=== PATIENT | male | born 1950 | race African-American/Black ===

== ENCOUNTER 2018-08-23 09:09 | Inpatient (IN) | payer MEDICARE, MEDICAID ==
[2018-08-23] VITALS (32 sets, daily range): BP systolic 118–171; BP diastolic 64–107
[~2018-08-23] VITALS: Ht 175.3 cm; Wt 89.0 kg
[2018-08-23] MEDS ORDERED: DEXTROSE 50% WATER 50ML SYRINGE IV ONE ×3 (09:19→15:09)
[2018-08-23] MEDS ORDERED: SODIUM BICARBONATE 8.4% 1 MEQ/ML 50ML SYR IV ONE ×3 (09:30→15:09)
[2018-08-23 09:36] LABS: BG BASE EXCESS -11.4 mmol/L (-2.0-2.0); BG CARBOXYHEMOGLOBIN 1.2 % (0.5-1.5); BG DEOXYHEMOGLOBIN 0.1 % (0.0-5.0); BG FRACTION INSPIRED OXYGEN 100; BG HCO3 ACT 16.8 mmol/L (22.0-26.0); BG METHEMOGLOBIN 0.2 % (0.0-1.5); BG OXYGEN SATURATION 99.9 % (92.0-98.5); BG OXYHEMOGLOBIN 98.5 % (94.0-97.0); BG PCO2 46.9 mmHg (35.0-45.0); BG PH 7.172 (7.350-7.450); BG PO2 413.7 mmHg (75.0-100.0); BG SAMPLE SITE RIGHT RADIAL; BG TIDAL VOLUME(mL) 450 mL; BG TOTAL HEMOGLOBIN 12.7 g/dL (12.0-18.0); BG VENT MODE VENT - A/C; BG VENT RATE 14 set
[2018-08-23] MEDS ORDERED: SODIUM CHLORIDE 0.9% 1000ML BAG (SEPSIS BOLUS) IV ONE (09:45)
[2018-08-23] MEDS ORDERED: VECURONIUM BROMIDE 10 MG/VIAL IV ONE ×2 (09:45→15:24)
[2018-08-23] MEDS ORDERED: MIDAZOLAM HCL 50 MG in DEXTROSE 5% WATER 40 ML IV ONE (09:45)
[2018-08-23 09:49] LABS: HEMATOCRIT. 44.6 % (42.0-52.0); HEMOGLOBIN. 13.6 g/dL (14.0-18.0); MEAN CORPUSCULAR HEMOGLOBIN 26.1 pg (28.0-32.0); MEAN PLATELET VOLUME 8.6 fl (7.4-10.4); PLATELET 404 x1000/uL (130-400); RED BLOOD CELL COUNT 5.19 mill/uL (4.7-6.1); RED CELL DISTRIBUTION WIDTH 17.2 % (11.6-14.6)
[2018-08-23 09:54] LABS: CHLORIDE 105 mEq/L (98-107); INR 1.3; PARTIAL THROMBOPLASTIN TIME 29.4 sec (23.4-31.0)
[2018-08-23 09:57] LABS: ETHANOL BLOOD < 10 mg/dL
[2018-08-23] MEDS ORDERED: KCL 20MEQ/100ML PREMIX 100 ML IV ONE (10:15)
[2018-08-23 10:45] LABS: PLATELET ESTIMATE SLIGHTLY INCREASED
[2018-08-23 11:00] LABS: CLARITY URINE CLEAR (CLEAR); COLOR URINE YELLOW (YELLOW); KETONES URINE NEGATIVE (NEGATIVE); LEUKOCYTE ESTERASE URINE NEGATIVE (NEGATIVE); NITRITE URINE NEGATIVE (NEGATIVE); OCCULT BLOOD URINE 2+ (NEGATIVE); PH URINE 7.5 (4.5-8.0); PROTEIN URINE 3+ (NEGATIVE); SPECIFIC GRAVITY URINE 1.011 (1.005-1.030)
[2018-08-23 11:25] LABS: *AMPHETAMINES SCREEN URINE NEGATIVE (NEGATIVE); *BARBITURATES SCREEN URINE NEGATIVE (NEGATIVE); *BENZODIAZEPINES SCREEN URINE NEGATIVE (NEGATIVE); *COCAINE SCREEN URINE NEGATIVE (NEGATIVE)
[2018-08-23 11:26] LABS: CANNABINOID URINE SCREEN NEGATIVE (NEGATIVE); METHADONE URINE SCREEN NEGATIVE (NEGATIVE); OPIATES URINE SCREEN NEGATIVE (NEGATIVE); PHENCYCLIDINE URINE SCREEN NEGATIVE (NEGATIVE)
[2018-08-23] MEDS ORDERED: ASPIRIN 300MG SUPP PR ONE (12:00)
[2018-08-23] MEDS ORDERED: LEVOFLOXACIN 500MG PREMIX 100 ML IV ONE (12:00)
[2018-08-23] MEDS ORDERED: CEFTRIAXONE 1 G PREMIX 50 ML IV ONE (12:00)
[2018-08-23 12:42] LABS: BG BASE EXCESS -0.2 mmol/L (-2.0-2.0); BG CARBOXYHEMOGLOBIN 1.2 % (0.5-1.5); BG DEOXYHEMOGLOBIN 6.2 % (0.0-5.0); BG FRACTION INSPIRED OXYGEN 60; BG HCO3 ACT 25.4 mmol/L (22.0-26.0); BG METHEMOGLOBIN 0.4 % (0.0-1.5); BG OXYGEN SATURATION 93.7 % (92.0-98.5); BG OXYHEMOGLOBIN 92.2 % (94.0-97.0); BG PCO2 45.2 mmHg (35.0-45.0); BG PH 7.367 (7.350-7.450); BG PO2 76.3 mmHg (75.0-100.0); BG SAMPLE SITE LEFT RADIAL; BG TIDAL VOLUME(mL) 550 mL; BG TOTAL HEMOGLOBIN 12.8 g/dL (12.0-18.0); BG VENT MODE VENT - A/C; BG VENT RATE 14 set
[2018-08-23] MEDS ORDERED: ACETAMINOPHEN 650MG SUPP PR PRN (13:15)
[2018-08-23] MEDS ORDERED: MEPERIDINE HCL/PF 25MG/ML CPJ IV PRN (13:15)
[2018-08-23] MEDS ORDERED: FENTANYL CITRATE/PF 500 MCG in SODIUM CHLORIDE 0.9% 40 ML IV PRN (13:15)
[2018-08-23 13:39] LABS: CHLORIDE 110 mEq/L (98-107)
[2018-08-23 14:49] LABS: CHLORIDE 110 mEq/L (98-107)
[2018-08-23 14:55] LABS: AMYLASE 50 IU/L (25-115)
[2018-08-23 14:57] LABS: PHOSPHORUS 3.6 mg/dL (2.5-4.9)
[2018-08-23 14:59] LABS: LDL CHOLESTEROL 61 mg/dL (5-100)
[2018-08-23 15:00] LABS: CREATINE KINASE 229 IU/L (39-308)
[2018-08-23 15:01] LABS: HDL CHOLESTEROL 45 mg/dL (40-59)
[2018-08-23 15:03] LABS: CREATINE KINASE MB FRACTION 5.3 ng/mL (0.5-3.6)
[2018-08-23] MEDS ORDERED: NITROGLYCERIN 0.4MG TABLET SL SL PRN (15:15)
[2018-08-23] MEDS ORDERED: NA PHOS,M-B/NA PHOS,DI-BA ENEMA 118ML PR PRN (15:15)
[2018-08-23] MEDS ORDERED: ACETAMINOPHEN 325MG TABLET PO PRN (15:15)
[2018-08-23] MEDS ORDERED: MAGNESIUM/ALUMINUM HYDROXIDE/SIMETHICONE 30ML UDC PO PRN (15:15)
[2018-08-23] MEDS ORDERED: SODIUM CHLORIDE 0.9% 10ML VIAL ONE (15:24)
[2018-08-23] MEDS: PROPOFOL 10MG/ML 100ML 100 ML IV PRN ×2 (16:43→22:50)
[2018-08-23] MEDS: DEXT 5%/LACTATED RINGERS 1,000 ML IV SCH (16:47)
[2018-08-23] MEDS: PANTOPRAZOLE SODIUM 40 MG/VIAL IV SCH (17:04)
[2018-08-23] MEDS: ENOXAPARIN 40MG/0.4ML SYR SUBCUT SCH (17:06)
[2018-08-23] MEDS ORDERED: KCL 20MEQ/100ML PREMIX 100 ML IV SCH (17:30)
[2018-08-23 17:53] LABS: HEMATOCRIT. 36.5 % (42.0-52.0); HEMOGLOBIN. 11.6 g/dL (14.0-18.0); MEAN CORPUSCULAR HEMOGLOBIN 26.1 pg (28.0-32.0); MEAN CORPUSCULAR VOLUME 82.3 fL (80.0-94.0); MEAN PLATELET VOLUME 8.4 fl (7.4-10.4); PLATELET 336 x1000/uL (130-400); RED BLOOD CELL COUNT 4.44 mill/uL (4.7-6.1); RED CELL DISTRIBUTION WIDTH 16.8 % (11.6-14.6)
[2018-08-23 17:54] LABS: BG BASE EXCESS 0.8 mmol/L (-2.0-2.0); BG CARBOXYHEMOGLOBIN 0.9 % (0.5-1.5); BG DEOXYHEMOGLOBIN 2.4 % (0.0-5.0); BG FRACTION INSPIRED OXYGEN 60; BG HCO3 ACT 25.7 mmol/L (22.0-26.0); BG METHEMOGLOBIN 0.3 % (0.0-1.5); BG OXYGEN SATURATION 97.6 % (92.0-98.5); BG OXYHEMOGLOBIN 96.4 % (94.0-97.0); BG PCO2 42.5 mmHg (35.0-45.0); BG PO2 106.7 mmHg (75.0-100.0); BG SAMPLE SITE RIGHT RADIAL; BG TIDAL VOLUME(mL) 550 mL; BG TOTAL HEMOGLOBIN 12.7 g/dL (12.0-18.0); BG VENT MODE VENT - A/C; BG VENT RATE 14 set
[2018-08-23 17:55] LABS: INR 1.3; PROTHROMBIN TIME 13.2 sec (9.1-11.1)
[2018-08-23] MEDS ORDERED: DEXTROSE 50% WATER 50ML SYRINGE IV PRN (18:00)
[2018-08-23 18:39] LABS: PLATELET ESTIMATE NORMAL
[2018-08-23] MEDS ORDERED: VANCOMYCIN 1500MG in DEXTROSE 5% WATER 250ML IV SCH (20:00)
[2018-08-23] MEDS: IPRATROPIUM/ALBUTEROL 0.5-3(2.5)MG/3ML NEB HHN SCH (20:09)
[2018-08-23] MEDS: PIPERACILLIN/TAZ 3.375G PREMIX 50 ML IV SCH (20:30)
[2018-08-23] MEDS: CARVEDILOL 3.125 MG TABLET PO SCH (21:00)
[2018-08-23] MEDS ORDERED: BLOOD SUGAR DIAGNOSTIC STRIP TEST SCH (21:00)
[2018-08-23] MEDS: INSULIN LISPRO 100 UNITS/ML SUBCUT SCH (21:00)
[2018-08-23 21:35] LABS: CREATINE KINASE MB FRACTION 5.1 ng/mL (0.5-3.6)
[2018-08-23 21:47] LABS: CHLORIDE 112 mEq/L (98-107)
[2018-08-23 21:59] LABS: CREATINE KINASE MB FRACTION 5.7 ng/mL (0.5-3.6)
[2018-08-23] MEDS ORDERED: DOPAMINE 400MG/250ML PREMIX 250 ML IV PRN (22:45)
[2018-08-23] MEDS ORDERED: NOREPINEPHRINE 16 MG in DEXT 5% WATER 234 ML IV PRN (22:45)
[2018-08-23] MEDS ORDERED: MAGNESIUM 2 G PREMIX 50 ML IV NR (23:00)
[2018-08-23 23:54] LABS: BG BASE EXCESS -1.6 mmol/L (-2.0-2.0); BG CARBOXYHEMOGLOBIN 0.8 % (0.5-1.5); BG DEOXYHEMOGLOBIN 1.6 % (0.0-5.0); BG FRACTION INSPIRED OXYGEN 60; BG HCO3 ACT 23.5 mmol/L (22.0-26.0); BG METHEMOGLOBIN 0.1 % (0.0-1.5); BG OXYGEN SATURATION 98.4 % (92.0-98.5); BG OXYHEMOGLOBIN 97.5 % (94.0-97.0); BG PCO2 41.3 mmHg (35.0-45.0); BG PEEP (cmH2O) 0 cmH2O; BG PH 7.373 (7.350-7.450); BG PO2 132.5 mmHg (75.0-100.0); BG SAMPLE SITE LEFT RADIAL; BG TIDAL VOLUME(mL) 500 mL; BG TOTAL HEMOGLOBIN 12.6 g/dL (12.0-18.0); BG VENT RATE 14 set
[2018-08-24] VITALS (101 sets, daily range): BP systolic 92–161; BP diastolic 39–101
[2018-08-24 00:03] LABS: BG VENT MODE VENT - A/C
[2018-08-24] MEDS: BLOOD SUGAR DIAGNOSTIC STRIP TEST SCH ×23 (00:11→23:26)
[2018-08-24] MEDS: PIPERACILLIN/TAZ 3.375G PREMIX 50 ML IV SCH ×5 (00:14→23:26)
[2018-08-24] MEDS: IPRATROPIUM/ALBUTEROL 0.5-3(2.5)MG/3ML NEB HHN SCH ×4 (00:36→20:26)
[2018-08-24] MEDS ORDERED: DEXTROSE 50% WATER 50ML SYRINGE IV PRN ×2 (00:45→20:00)
[2018-08-24] MEDS ORDERED: INSULIN REGULAR (DRIP) 100 UNITS in SODIUM CHLORIDE 0.9% 100 ML IV SCH (01:00)
[2018-08-24 01:20] LABS: CHLORIDE 111 mEq/L (98-107)
[2018-08-24 01:26] LABS: PHOSPHORUS 3.9 mg/dL (2.5-4.9)
[2018-08-24 01:29] LABS: CREATINE KINASE 290 IU/L (39-308)
[2018-08-24 01:31] LABS: CREATINE KINASE MB FRACTION 6.6 ng/mL (0.5-3.6)
[2018-08-24] MEDS: DOBUTAMINE 250MG PREMIX 250 ML IV PRN ×2 (03:12→12:06)
[2018-08-24] MEDS: INSULIN LISPRO 100 UNITS/ML SUBCUT SCH ×5 (07:00→23:28)
[2018-08-24] MEDS: PROPOFOL 10MG/ML 100ML 100 ML IV PRN ×2 (07:04→17:48)
[2018-08-24 07:46] LABS: HEMATOCRIT. 38.8 % (42.0-52.0); HEMOGLOBIN. 11.8 g/dL (14.0-18.0); MEAN CORPUSCULAR HEMOGLOBIN 25.6 pg (28.0-32.0); MEAN CORPUSCULAR VOLUME 84.3 fL (80.0-94.0); MEAN PLATELET VOLUME 8.3 fl (7.4-10.4); PLATELET 285 x1000/uL (130-400); RED BLOOD CELL COUNT 4.61 mill/uL (4.7-6.1); RED CELL DISTRIBUTION WIDTH 16.6 % (11.6-14.6)
[2018-08-24 07:53] LABS: INR 1.4; PROTHROMBIN TIME 13.6 sec (9.1-11.1)
[2018-08-24 07:58] LABS: BG BASE EXCESS -1.6 mmol/L (-2.0-2.0); BG CARBOXYHEMOGLOBIN 0.9 % (0.5-1.5); BG DEOXYHEMOGLOBIN 2.7 % (0.0-5.0); BG FRACTION INSPIRED OXYGEN 60; BG HCO3 ACT 24.4 mmol/L (22.0-26.0); BG METHEMOGLOBIN 0.3 % (0.0-1.5); BG OXYGEN SATURATION 97.3 % (92.0-98.5); BG OXYHEMOGLOBIN 96.1 % (94.0-97.0); BG PCO2 46.2 mmHg (35.0-45.0); BG PO2 109.1 mmHg (75.0-100.0); BG SAMPLE SITE RIGHT RADIAL; BG TIDAL VOLUME(mL) 500 mL; BG TOTAL HEMOGLOBIN 12.2 g/dL (12.0-18.0); BG VENT MODE VENT - A/C; BG VENT RATE 14 set
[2018-08-24 08:02] LABS: CHLORIDE 113 mEq/L (98-107)
[2018-08-24 08:14] LABS: LDL CHOLESTEROL 51 mg/dL (5-100); PHOSPHORUS 3.5 mg/dL (2.5-4.9)
[2018-08-24 08:15] LABS: CREATINE KINASE 532 IU/L (39-308); CREATINE KINASE MB FRACTION 8.7 ng/mL (0.5-3.6)
[2018-08-24 08:16] LABS: HDL CHOLESTEROL 36 mg/dL (40-59)
[2018-08-24] MEDS ORDERED: PANTOPRAZOLE SODIUM 40 MG/VIAL IV SCH (09:00)
[2018-08-24] MEDS: DEXT 5%/LACTATED RINGERS 1,000 ML IV SCH ×2 (09:29→18:19)
[2018-08-24] MEDS: DOCUSATE SODIUM 100MG CAPSULE PO PRN (09:35)
[2018-08-24] MEDS: PANTOPRAZOLE SODIUM 40 MG/VIAL IV SCH (09:36)
[2018-08-24] MEDS: ASPIRIN 325MG TABLET PO SCH (09:36)
[2018-08-24] MEDS: CARVEDILOL 3.125 MG TABLET PO SCH (09:36)
[2018-08-24] MEDS ORDERED: POTASSIUM CHLORIDE 20MEQ/PACKET PO NR ×2 (10:00→23:00)
[2018-08-24 10:10] LABS: PLATELET ESTIMATE NORMAL
[2018-08-24] MEDS: FUROSEMIDE 40MG/4ML VIAL IVP SCH ×2 (10:10→10:13)
[2018-08-24] MEDS: VANCOMYCIN 1250MG in DEXTROSE 5% WATER 250ML IV SCH ×2 (10:13→20:17)
[2018-08-24 13:32] LABS: MEAN CORPUSCULAR VOLUME 82.1 fL (80.0-94.0); MEAN PLATELET VOLUME 8.4 fl (7.4-10.4); PLATELET 281 x1000/uL (130-400); RED BLOOD CELL COUNT 4.63 mill/uL (4.7-6.1); RED CELL DISTRIBUTION WIDTH 16.6 % (11.6-14.6)
[2018-08-24 13:40] LABS: CHLORIDE 111 mEq/L (98-107)
[2018-08-24 13:48] LABS: PHOSPHORUS 3.6 mg/dL (2.5-4.9)
[2018-08-24 14:04] LABS: PLATELET ESTIMATE NORMAL
[2018-08-24] MEDS: DEXTROSE 50% WATER 50ML SYRINGE IV PRN ×3 (14:12→14:19)
[2018-08-24] MEDS: IPRATROPIUM/ALBUTEROL 0.5-3(2.5)MG/3ML NEB HHN PRN (16:15)
[2018-08-24 16:57] LABS: HEMATOCRIT. 36.1 % (42.0-52.0); HEMOGLOBIN. 11.4 g/dL (14.0-18.0); MEAN CORPUSCULAR HEMOGLOBIN 25.6 pg (28.0-32.0); MEAN CORPUSCULAR VOLUME 81.3 fL (80.0-94.0); MEAN PLATELET VOLUME 8.7 fl (7.4-10.4); PLATELET 276 x1000/uL (130-400); RED BLOOD CELL COUNT 4.44 mill/uL (4.7-6.1); RED CELL DISTRIBUTION WIDTH 16.9 % (11.6-14.6)
[2018-08-24 17:04] LABS: INR 1.3; PROTHROMBIN TIME 13.1 sec (9.1-11.1)
[2018-08-24 17:12] LABS: CHLORIDE 112 mEq/L (98-107)
[2018-08-24 17:19] LABS: PHOSPHORUS 3.2 mg/dL (2.5-4.9)
[2018-08-24 17:27] LABS: PLATELET ESTIMATE NORMAL
[2018-08-24] MEDS: ENOXAPARIN 40MG/0.4ML SYR SUBCUT SCH (17:41)
[2018-08-24 17:43] LABS: BG BASE EXCESS -1.2 mmol/L (-2.0-2.0); BG CARBOXYHEMOGLOBIN 0.6 % (0.5-1.5); BG DEOXYHEMOGLOBIN 3.7 % (0.0-5.0); BG FRACTION INSPIRED OXYGEN 40; BG METHEMOGLOBIN 0.3 % (0.0-1.5); BG OXYGEN SATURATION 96.3 % (92.0-98.5); BG OXYHEMOGLOBIN 95.4 % (94.0-97.0); BG PCO2 32.1 mmHg (35.0-45.0); BG PH 7.454 (7.350-7.450); BG PO2 86.6 mmHg (75.0-100.0); BG SAMPLE SITE RIGHT RADIAL; BG TIDAL VOLUME(mL) 500 mL; BG TOTAL HEMOGLOBIN 12.3 g/dL (12.0-18.0); BG VENT MODE VENT - A/C; BG VENT RATE 14 set
[2018-08-24 22:37] LABS: HEMATOCRIT. 34.7 % (42.0-52.0); MEAN CORPUSCULAR HEMOGLOBIN 25.7 pg (28.0-32.0); MEAN CORPUSCULAR VOLUME 81.5 fL (80.0-94.0); MEAN PLATELET VOLUME 8.8 fl (7.4-10.4); PLATELET 268 x1000/uL (130-400); RED BLOOD CELL COUNT 4.26 mill/uL (4.7-6.1); RED CELL DISTRIBUTION WIDTH 16.7 % (11.6-14.6)
[2018-08-24 22:43] LABS: INR 1.3; PROTHROMBIN TIME 13.5 sec (9.1-11.1)
[2018-08-24 22:47] LABS: PHOSPHORUS 3.9 mg/dL (2.5-4.9)
[2018-08-24 23:10] LABS: PLATELET ESTIMATE NORMAL
[2018-08-25] VITALS (93 sets, daily range): BP systolic 88–131; BP diastolic 50–74
[2018-08-25] MEDS: PROPOFOL 10MG/ML 100ML 100 ML IV PRN ×4 (00:30→20:45)
[2018-08-25] MEDS: IPRATROPIUM/ALBUTEROL 0.5-3(2.5)MG/3ML NEB HHN SCH ×4 (01:33→20:13)
[2018-08-25 02:39] LABS: HEMATOCRIT. 35.2 % (42.0-52.0); HEMOGLOBIN. 11.1 g/dL (14.0-18.0); MEAN CORPUSCULAR HEMOGLOBIN 25.9 pg (28.0-32.0); MEAN CORPUSCULAR VOLUME 82.2 fL (80.0-94.0); MEAN PLATELET VOLUME 8.5 fl (7.4-10.4); PLATELET 264 x1000/uL (130-400); RED BLOOD CELL COUNT 4.28 mill/uL (4.7-6.1); RED CELL DISTRIBUTION WIDTH 16.8 % (11.6-14.6)
[2018-08-25 02:50] LABS: PHOSPHORUS 3.8 mg/dL (2.5-4.9)
[2018-08-25 02:59] LABS: INR 1.3; PROTHROMBIN TIME 13.1 sec (9.1-11.1)
[2018-08-25 03:09] LABS: PLATELET ESTIMATE NORMAL
[2018-08-25] MEDS: INSULIN LISPRO 100 UNITS/ML SUBCUT SCH ×6 (03:17→23:12)
[2018-08-25] MEDS: BLOOD SUGAR DIAGNOSTIC STRIP TEST SCH ×6 (03:17→23:12)
[2018-08-25] MEDS: PIPERACILLIN/TAZ 3.375G PREMIX 50 ML IV SCH ×4 (05:06→23:13)
[2018-08-25] MEDS: DEXT 5%/LACTATED RINGERS 1,000 ML IV SCH ×2 (05:06→19:50)
[2018-08-25 08:20] LABS: BG BASE EXCESS 1.5 mmol/L (-2.0-2.0); BG CARBOXYHEMOGLOBIN 0.7 % (0.5-1.5); BG DEOXYHEMOGLOBIN 4.1 % (0.0-5.0); BG FRACTION INSPIRED OXYGEN 40; BG HCO3 ACT 25.6 mmol/L (22.0-26.0); BG METHEMOGLOBIN 0.3 % (0.0-1.5); BG OXYGEN SATURATION 95.9 % (92.0-98.5); BG OXYHEMOGLOBIN 94.9 % (94.0-97.0); BG PCO2 38.7 mmHg (35.0-45.0); BG PH 7.439 (7.350-7.450); BG SAMPLE SITE RIGHT RADIAL; BG TIDAL VOLUME(mL) 500 mL; BG TOTAL HEMOGLOBIN 11.2 g/dL (12.0-18.0); BG VENT MODE VENT - A/C; BG VENT RATE 14 set
[2018-08-25] MEDS: ASPIRIN 325MG TABLET PO SCH (08:37)
[2018-08-25] MEDS: VANCOMYCIN 1250MG in DEXTROSE 5% WATER 250ML IV SCH ×2 (08:37→23:33)
[2018-08-25] MEDS: PANTOPRAZOLE SODIUM 40 MG/VIAL IV SCH (08:37)
[2018-08-25 09:42] LABS: BASOPHILS % 0.4 % (0.0-2.0); HEMATOCRIT. 35.8 % (42.0-52.0); HEMOGLOBIN. 11.2 g/dL (14.0-18.0); LYMPHOCYTES % 8.9 % (20.0-50.0); MEAN CORPUSCULAR HEMOGLOBIN 25.9 pg (28.0-32.0); MEAN CORPUSCULAR VOLUME 82.5 fL (80.0-94.0); MEAN PLATELET VOLUME 8.9 fl (7.4-10.4); MONOCYTES % 9.9 % (2.0-8.0); NEUTROPHILS % 78.8 % (40.0-76.0); PLATELET 281 x1000/uL (130-400); RED BLOOD CELL COUNT 4.34 mill/uL (4.7-6.1); RED CELL DISTRIBUTION WIDTH 16.6 % (11.6-14.6)
[2018-08-25 09:48] LABS: CHLORIDE 110 mEq/L (98-107)
[2018-08-25 09:53] LABS: INR 1.3; PROTHROMBIN TIME 12.7 sec (9.1-11.1)
[2018-08-25 09:54] LABS: PHOSPHORUS 4.1 mg/dL (2.5-4.9)
[2018-08-25 09:57] LABS: CREATINE KINASE 397 IU/L (39-308)
[2018-08-25 10:00] LABS: CREATINE KINASE MB FRACTION 3.8 ng/mL (0.5-3.6)
[2018-08-25] MEDS: ENOXAPARIN 40MG/0.4ML SYR SUBCUT SCH (17:10)
[2018-08-25] MEDS: POTASSIUM CHLORIDE 20MEQ/PACKET PO SCH (17:10)
[2018-08-26] VITALS (87 sets, daily range): BP systolic 91–143; BP diastolic 56–86
[2018-08-26] MEDS: IPRATROPIUM/ALBUTEROL 0.5-3(2.5)MG/3ML NEB HHN SCH ×4 (02:21→20:44)
[2018-08-26] MEDS: BLOOD SUGAR DIAGNOSTIC STRIP TEST SCH ×6 (03:43→23:15)
[2018-08-26] MEDS: INSULIN LISPRO 100 UNITS/ML SUBCUT SCH ×6 (03:44→23:15)
[2018-08-26] MEDS: PROPOFOL 10MG/ML 100ML 100 ML IV PRN (03:45)
[2018-08-26] MEDS: PIPERACILLIN/TAZ 3.375G PREMIX 50 ML IV SCH ×4 (05:08→23:16)
[2018-08-26 05:34] LABS: BASOPHILS % 0.4 % (0.0-2.0); EOSINOPHILS % 2.3 % (0.0-5.0); HEMATOCRIT. 33.9 % (42.0-52.0); HEMOGLOBIN. 10.8 g/dL (14.0-18.0); LYMPHOCYTES % 11.4 % (20.0-50.0); MEAN CORPUSCULAR VOLUME 81.6 fL (80.0-94.0); MEAN PLATELET VOLUME 9.2 fl (7.4-10.4); MONOCYTES % 10.7 % (2.0-8.0); NEUTROPHILS % 75.2 % (40.0-76.0); PLATELET 266 x1000/uL (130-400); RED BLOOD CELL COUNT 4.15 mill/uL (4.7-6.1); RED CELL DISTRIBUTION WIDTH 17.1 % (11.6-14.6)
[2018-08-26 05:49] LABS: CHLORIDE 111 mEq/L (98-107)
[2018-08-26 05:58] LABS: PHOSPHORUS 3.3 mg/dL (2.5-4.9)
[2018-08-26 08:29] LABS: BG BASE EXCESS 3.5 mmol/L (-2.0-2.0); BG CARBOXYHEMOGLOBIN 0.7 % (0.5-1.5); BG DEOXYHEMOGLOBIN 1.7 % (0.0-5.0); BG FRACTION INSPIRED OXYGEN 40; BG HCO3 ACT 27.8 mmol/L (22.0-26.0); BG METHEMOGLOBIN 0.2 % (0.0-1.5); BG OXYGEN SATURATION 98.3 % (92.0-98.5); BG OXYHEMOGLOBIN 97.4 % (94.0-97.0); BG PCO2 41.3 mmHg (35.0-45.0); BG PH 7.446 (7.350-7.450); BG PO2 118.7 mmHg (75.0-100.0); BG SAMPLE SITE RIGHT RADIAL; BG TIDAL VOLUME(mL) 500 mL; BG TOTAL HEMOGLOBIN 10.9 g/dL (12.0-18.0); BG VENT MODE VENT - A/C; BG VENT RATE 14 set
[2018-08-26] MEDS: POTASSIUM CHLORIDE 20MEQ/PACKET PO SCH ×2 (09:07→16:52)
[2018-08-26] MEDS: ASPIRIN 325MG TABLET PO SCH (09:07)
[2018-08-26] MEDS: PANTOPRAZOLE SODIUM 40 MG/VIAL IV SCH (09:07)
[2018-08-26] MEDS: FUROSEMIDE 40MG/4ML VIAL IVP SCH (09:07)
[2018-08-26] MEDS ORDERED: FUROSEMIDE 40MG/4ML VIAL IVP NR (09:45)
[2018-08-26] MEDS: FENTANYL CITRATE/PF 500 MCG in SODIUM CHLORIDE 0.9% 40 ML IV PRN ×2 (12:05→20:58)
[2018-08-26] MEDS ORDERED: KCL 20MEQ/100ML PREMIX 100 ML IV NR (16:00)
[2018-08-26] MEDS: ENOXAPARIN 40MG/0.4ML SYR SUBCUT SCH (16:50)
[2018-08-26] MEDS: VANCOMYCIN 1250MG in DEXTROSE 5% WATER 250ML IV SCH (17:50)
[2018-08-27] VITALS (48 sets, daily range): BP systolic 83–134; BP diastolic 34–85
[2018-08-27] MEDS: IPRATROPIUM/ALBUTEROL 0.5-3(2.5)MG/3ML NEB HHN SCH ×4 (03:07→20:28)
[2018-08-27] MEDS: INSULIN LISPRO 100 UNITS/ML SUBCUT SCH ×6 (03:17→23:30)
[2018-08-27] MEDS: BLOOD SUGAR DIAGNOSTIC STRIP TEST SCH ×6 (03:17→23:30)
[2018-08-27] MEDS: FENTANYL CITRATE/PF 500 MCG in SODIUM CHLORIDE 0.9% 40 ML IV PRN ×2 (04:38→10:57)
[2018-08-27] MEDS: PIPERACILLIN/TAZ 3.375G PREMIX 50 ML IV SCH ×4 (05:20→23:31)
[2018-08-27 07:27] LABS: HEMATOCRIT. 34.5 % (42.0-52.0); HEMOGLOBIN. 10.8 g/dL (14.0-18.0); MEAN CORPUSCULAR HEMOGLOBIN 25.8 pg (28.0-32.0); MEAN CORPUSCULAR VOLUME 82.5 fL (80.0-94.0); MEAN PLATELET VOLUME 8.9 fl (7.4-10.4); PLATELET 271 x1000/uL (130-400); RED BLOOD CELL COUNT 4.18 mill/uL (4.7-6.1); RED CELL DISTRIBUTION WIDTH 17.3 % (11.6-14.6)
[2018-08-27 08:21] LABS: PLATELET ESTIMATE NORMAL
[2018-08-27 11:14] LABS: BG BASE EXCESS 3.6 mmol/L (-2.0-2.0); BG CARBOXYHEMOGLOBIN 0.7 % (0.5-1.5); BG DEOXYHEMOGLOBIN 1.1 % (0.0-5.0); BG FRACTION INSPIRED OXYGEN 60; BG HCO3 ACT 30.4 mmol/L (22.0-26.0); BG METHEMOGLOBIN 0.1 % (0.0-1.5); BG OXYGEN SATURATION 98.9 % (92.0-98.5); BG OXYHEMOGLOBIN 98.1 % (94.0-97.0); BG PCO2 56.6 mmHg (35.0-45.0); BG PH 7.348 (7.350-7.450); BG PO2 169.1 mmHg (75.0-100.0); BG PRESSURE SUPPORT 12; BG SAMPLE SITE RIGHT RADIAL; BG TIDAL VOLUME(mL) 500 mL; BG TOTAL HEMOGLOBIN 11.5 g/dL (12.0-18.0); BG VENT MODE VENT - SIMV; BG VENT RATE 10 set
[2018-08-27] MEDS: PANTOPRAZOLE SODIUM 40 MG/VIAL IV SCH (11:19)
[2018-08-27] MEDS: FUROSEMIDE 40MG/4ML VIAL IVP SCH (11:19)
[2018-08-27] MEDS: ONDANSETRON HCL 4MG/2ML INJ IV PRN (11:20)
[2018-08-27] MEDS: VANCOMYCIN 1250MG in DEXTROSE 5% WATER 250ML IV SCH (11:20)
[2018-08-27] MEDS: ASPIRIN 325MG TABLET PO SCH (11:20)
[2018-08-27] MEDS: POTASSIUM CHLORIDE 20MEQ/PACKET PO SCH ×2 (11:20→17:00)
[2018-08-27] MEDS: METOCLOPRAMIDE HCL 10MG/2ML VIAL IV SCH ×3 (12:02→23:31)
[2018-08-27 13:13] LABS: BG BASE EXCESS 2.8 mmol/L (-2.0-2.0); BG CARBOXYHEMOGLOBIN 0.7 % (0.5-1.5); BG DEOXYHEMOGLOBIN 1.6 % (0.0-5.0); BG FRACTION INSPIRED OXYGEN 40; BG HCO3 ACT 29.5 mmol/L (22.0-26.0); BG METHEMOGLOBIN 0.4 % (0.0-1.5); BG OXYGEN SATURATION 98.4 % (92.0-98.5); BG OXYHEMOGLOBIN 97.3 % (94.0-97.0); BG PCO2 55.1 mmHg (35.0-45.0); BG PH 7.346 (7.350-7.450); BG PO2 135.2 mmHg (75.0-100.0); BG PRESSURE SUPPORT 8; BG SAMPLE SITE RIGHT RADIAL; BG TOTAL HEMOGLOBIN 11.4 g/dL (12.0-18.0); BG VENT MODE VENT - CPAP
[2018-08-27] MEDS: ENOXAPARIN 40MG/0.4ML SYR SUBCUT SCH (17:40)
[2018-08-28] VITALS (44 sets, daily range): BP systolic 110–196; BP diastolic 49–103
[2018-08-28] MEDS: IPRATROPIUM/ALBUTEROL 0.5-3(2.5)MG/3ML NEB HHN SCH ×4 (01:16→20:11)
[2018-08-28] MEDS: BLOOD SUGAR DIAGNOSTIC STRIP TEST SCH ×6 (04:00→23:06)
[2018-08-28] MEDS: INSULIN LISPRO 100 UNITS/ML SUBCUT SCH ×6 (04:00→23:05)
[2018-08-28] MEDS: METOCLOPRAMIDE HCL 10MG/2ML VIAL IV SCH ×4 (05:04→23:11)
[2018-08-28] MEDS: PIPERACILLIN/TAZ 3.375G PREMIX 50 ML IV SCH ×4 (05:04→23:11)
[2018-08-28 05:41] LABS: HEMATOCRIT. 33.3 % (42.0-52.0); HEMOGLOBIN. 10.3 g/dL (14.0-18.0); MEAN CORPUSCULAR VOLUME 83.7 fL (80.0-94.0); MEAN PLATELET VOLUME 9.2 fl (7.4-10.4); PLATELET 243 x1000/uL (130-400); RED BLOOD CELL COUNT 3.98 mill/uL (4.7-6.1); RED CELL DISTRIBUTION WIDTH 17.2 % (11.6-14.6)
[2018-08-28] MEDS: VANCOMYCIN 1250MG in DEXTROSE 5% WATER 250ML IV SCH (06:00)
[2018-08-28 06:33] LABS: VANCOMYCIN TROUGH 25.1 ug/mL (5.0-10.0)
[2018-08-28] MEDS ORDERED: LORAZEPAM 2MG/ML CPJ IV PRN (08:45)
[2018-08-28] MEDS: FUROSEMIDE 40MG/4ML VIAL IVP SCH (08:59)
[2018-08-28] MEDS: PANTOPRAZOLE SODIUM 40 MG/VIAL IV SCH (09:00)
[2018-08-28] MEDS: POTASSIUM CHLORIDE 20MEQ/PACKET PO SCH ×2 (09:00→17:13)
[2018-08-28] MEDS: ASPIRIN 325MG TABLET PO SCH (09:00)
[2018-08-28 10:13] LABS: PLATELET ESTIMATE NORMAL
[2018-08-28 11:28] LABS: BG BASE EXCESS 3.7 mmol/L (-2.0-2.0); BG CARBOXYHEMOGLOBIN 0.9 % (0.5-1.5); BG DEOXYHEMOGLOBIN 4.8 % (0.0-5.0); BG HCO3 ACT 29.6 mmol/L (22.0-26.0); BG METHEMOGLOBIN 0.1 % (0.0-1.5); BG OXYGEN SATURATION 95.2 % (92.0-98.5); BG OXYHEMOGLOBIN 94.2 % (94.0-97.0); BG PCO2 50.9 mmHg (35.0-45.0); BG PH 7.382 (7.350-7.450); BG PO2 81.9 mmHg (75.0-100.0); BG SAMPLE SITE RIGHT RADIAL; BG TOTAL HEMOGLOBIN 11.3 g/dL (12.0-18.0); BG VENT MODE MASK - AEROSOL
[2018-08-28] MEDS: ENOXAPARIN 40MG/0.4ML SYR SUBCUT SCH (17:13)
[2018-08-28] MEDS: CLONIDINE 0.1MG TABLET PO PRN (21:23)
[2018-08-29] VITALS (24 sets, daily range): BP systolic 124–164; BP diastolic 62–91
[2018-08-29] MEDS: IPRATROPIUM/ALBUTEROL 0.5-3(2.5)MG/3ML NEB HHN SCH ×4 (01:51→20:34)
[2018-08-29] MEDS: INSULIN LISPRO 100 UNITS/ML SUBCUT SCH ×5 (04:00→21:17)
[2018-08-29] MEDS: BLOOD SUGAR DIAGNOSTIC STRIP TEST SCH ×5 (04:00→20:00)
[2018-08-29] MEDS: METOCLOPRAMIDE HCL 10MG/2ML VIAL IV SCH ×3 (06:10→17:17)
[2018-08-29] MEDS: PIPERACILLIN/TAZ 3.375G PREMIX 50 ML IV SCH ×3 (06:10→17:17)
[2018-08-29] MEDS: FUROSEMIDE 40MG/4ML VIAL IVP SCH (09:02)
[2018-08-29] MEDS: PANTOPRAZOLE SODIUM 40 MG/VIAL IV SCH (09:02)
[2018-08-29] MEDS: POTASSIUM CHLORIDE 20MEQ/PACKET PO SCH ×2 (09:02→17:17)
[2018-08-29] MEDS: ASPIRIN 325MG TABLET PO SCH (09:02)
[2018-08-29] MEDS: ENOXAPARIN 40MG/0.4ML SYR SUBCUT SCH (17:17)
[2018-08-30] VITALS (15 sets, daily range): BP systolic 101–173; BP diastolic 54–98
[2018-08-30] MEDS: PIPERACILLIN/TAZ 3.375G PREMIX 50 ML IV SCH ×4 (00:05→17:21)
[2018-08-30] MEDS: METOCLOPRAMIDE HCL 10MG/2ML VIAL IV SCH ×4 (00:05→17:21)
[2018-08-30] MEDS: BLOOD SUGAR DIAGNOSTIC STRIP TEST SCH ×6 (00:05→20:40)
[2018-08-30] MEDS: IPRATROPIUM/ALBUTEROL 0.5-3(2.5)MG/3ML NEB HHN SCH ×5 (01:39→20:28)
[2018-08-30] MEDS: IPRATROPIUM/ALBUTEROL 0.5-3(2.5)MG/3ML NEB HHN PRN (02:18)
[2018-08-30] MEDS: INSULIN LISPRO 100 UNITS/ML SUBCUT SCH ×6 (06:12→21:01)
[2018-08-30] MEDS: PANTOPRAZOLE SODIUM 40 MG/VIAL IV SCH (08:52)
[2018-08-30] MEDS: ASPIRIN 325MG TABLET PO SCH (08:52)
[2018-08-30] MEDS: DOCUSATE SODIUM 100MG CAPSULE PO PRN (08:52)
[2018-08-30] MEDS: FUROSEMIDE 40MG/4ML VIAL IVP SCH (08:52)
[2018-08-30] MEDS: POTASSIUM CHLORIDE 20MEQ/PACKET PO SCH ×2 (08:53→17:10)
[2018-08-30] MEDS: CLONIDINE 0.1MG TABLET PO PRN ×2 (09:09→14:17)
[2018-08-30 09:15] LABS: BASOPHILS % 0.9 % (0.0-2.0); EOSINOPHILS % 2.8 % (0.0-5.0); HEMATOCRIT. 35.2 % (42.0-52.0); MEAN CORPUSCULAR HEMOGLOBIN 25.8 pg (28.0-32.0); MEAN CORPUSCULAR VOLUME 82.9 fL (80.0-94.0); MEAN PLATELET VOLUME 9.4 fl (7.4-10.4); MONOCYTES % 12.6 % (2.0-8.0); NEUTROPHILS % 75.7 % (40.0-76.0); PLATELET 311 x1000/uL (130-400); RED BLOOD CELL COUNT 4.24 mill/uL (4.7-6.1); RED CELL DISTRIBUTION WIDTH 17.4 % (11.6-14.6)
[2018-08-30 11:09] LABS: CHLORIDE 112 mEq/L (98-107)
[2018-08-30] MEDS: ENOXAPARIN 60MG/0.6ML SYR SUBCUT SCH (17:11)
[2018-08-30] MEDS: DILTIAZEM HCL 30MG TABLET PO SCH (21:10)
[2018-08-31] VITALS (13 sets, daily range): BP systolic 108–164; BP diastolic 51–94
[2018-08-31] MEDS: METOCLOPRAMIDE HCL 10MG/2ML VIAL IV SCH ×5 (01:08→23:33)
[2018-08-31] MEDS: IPRATROPIUM/ALBUTEROL 0.5-3(2.5)MG/3ML NEB HHN SCH ×4 (01:24→21:32)
[2018-08-31] MEDS: INSULIN LISPRO 100 UNITS/ML SUBCUT SCH ×7 (04:00→23:34)
[2018-08-31] MEDS: BLOOD SUGAR DIAGNOSTIC STRIP TEST SCH ×7 (04:38→23:33)
[2018-08-31] MEDS: DILTIAZEM HCL 30MG TABLET PO SCH (05:59)
[2018-08-31] MEDS: ENOXAPARIN 60MG/0.6ML SYR SUBCUT SCH ×2 (05:59→17:11)
[2018-08-31 07:22] LABS: BASOPHILS % 0.8 % (0.0-2.0); EOSINOPHILS % 2.8 % (0.0-5.0); HEMATOCRIT. 34.3 % (42.0-52.0); HEMOGLOBIN. 10.8 g/dL (14.0-18.0); LYMPHOCYTES % 11.5 % (20.0-50.0); MEAN CORPUSCULAR HEMOGLOBIN 25.7 pg (28.0-32.0); MEAN CORPUSCULAR VOLUME 81.7 fL (80.0-94.0); MEAN PLATELET VOLUME 9.6 fl (7.4-10.4); MONOCYTES % 12.5 % (2.0-8.0); NEUTROPHILS % 72.4 % (40.0-76.0); PLATELET 321 x1000/uL (130-400); RED CELL DISTRIBUTION WIDTH 17.4 % (11.6-14.6)
[2018-08-31] MEDS: ASPIRIN 325MG TABLET PO SCH (09:33)
[2018-08-31] MEDS: POTASSIUM CHLORIDE 20MEQ/PACKET PO SCH ×2 (09:33→17:10)
[2018-08-31] MEDS: FUROSEMIDE 40MG/4ML VIAL IVP SCH (09:33)
[2018-08-31] MEDS: PANTOPRAZOLE SODIUM 40 MG/VIAL IV SCH (09:33)
[2018-08-31 11:04] LABS: CHLORIDE 112 mEq/L (98-107)
[2018-08-31] MEDS: DILTIAZEM HCL 60MG TABLET PO SCH ×2 (14:44→23:33)
[2018-09-01] VITALS (11 sets, daily range): BP systolic 125–154; BP diastolic 51–107
[2018-09-01] MEDS: IPRATROPIUM/ALBUTEROL 0.5-3(2.5)MG/3ML NEB HHN SCH ×4 (01:02→21:06)
[2018-09-01] MEDS: BLOOD SUGAR DIAGNOSTIC STRIP TEST SCH ×5 (04:13→20:37)
[2018-09-01] MEDS: INSULIN LISPRO 100 UNITS/ML SUBCUT SCH ×5 (04:14→20:39)
[2018-09-01] MEDS: METOCLOPRAMIDE HCL 10MG/2ML VIAL IV SCH ×3 (05:58→17:41)
[2018-09-01] MEDS: ENOXAPARIN 60MG/0.6ML SYR SUBCUT SCH ×2 (05:58→17:42)
[2018-09-01] MEDS: DILTIAZEM HCL 60MG TABLET PO SCH ×2 (05:58→15:05)
[2018-09-01 08:00] LABS: BASOPHILS % 0.9 % (0.0-2.0); EOSINOPHILS % 1.8 % (0.0-5.0); HEMATOCRIT. 38.3 % (42.0-52.0); HEMOGLOBIN. 11.7 g/dL (14.0-18.0); LYMPHOCYTES % 9.4 % (20.0-50.0); MEAN CORPUSCULAR HEMOGLOBIN 25.7 pg (28.0-32.0); MEAN CORPUSCULAR VOLUME 84.1 fL (80.0-94.0); MEAN PLATELET VOLUME 9.8 fl (7.4-10.4); MONOCYTES % 11.4 % (2.0-8.0); NEUTROPHILS % 76.5 % (40.0-76.0); PLATELET 358 x1000/uL (130-400); RED BLOOD CELL COUNT 4.55 mill/uL (4.7-6.1); RED CELL DISTRIBUTION WIDTH 17.8 % (11.6-14.6)
[2018-09-01] MEDS: POTASSIUM CHLORIDE 20MEQ/PACKET PO SCH ×2 (09:12→17:41)
[2018-09-01] MEDS: ASPIRIN 325MG TABLET PO SCH (09:12)
[2018-09-01] MEDS: PANTOPRAZOLE SODIUM 40 MG/VIAL IV SCH (09:12)
[2018-09-01] MEDS: FUROSEMIDE 40MG/4ML VIAL IVP SCH (09:12)
[2018-09-01] MEDS: DILTIAZEM HCL 90MG TABLET PO SCH (21:23)
[2018-09-02] VITALS (9 sets, daily range): BP systolic 128–166; BP diastolic 76–102
[2018-09-02] MEDS: IPRATROPIUM/ALBUTEROL 0.5-3(2.5)MG/3ML NEB HHN SCH ×2 (01:08→21:05)
[2018-09-02] MEDS: METOCLOPRAMIDE HCL 10MG/2ML VIAL IV SCH ×4 (01:21→17:31)
[2018-09-02] MEDS: BLOOD SUGAR DIAGNOSTIC STRIP TEST SCH ×6 (04:37→20:27)
[2018-09-02] MEDS: INSULIN LISPRO 100 UNITS/ML SUBCUT SCH ×6 (04:41→21:02)
[2018-09-02] MEDS: ENOXAPARIN 60MG/0.6ML SYR SUBCUT SCH ×2 (05:21→17:31)
[2018-09-02] MEDS: DILTIAZEM HCL 90MG TABLET PO SCH ×3 (05:24→17:33)
[2018-09-02 07:00] LABS: BG BASE EXCESS 3.4 mmol/L (-2.0-2.0); BG CARBOXYHEMOGLOBIN 1.1 % (0.5-1.5); BG DEOXYHEMOGLOBIN 6.4 % (0.0-5.0); BG FRACTION INSPIRED OXYGEN 32; BG METHEMOGLOBIN 0.3 % (0.0-1.5); BG OXYGEN SATURATION 93.5 % (92.0-98.5); BG OXYHEMOGLOBIN 92.2 % (94.0-97.0); BG PCO2 37.4 mmHg (35.0-45.0); BG PH 7.476 (7.350-7.450); BG PO2 72.5 mmHg (75.0-100.0); BG SAMPLE SITE RIGHT RADIAL; BG TOTAL HEMOGLOBIN 12.3 g/dL (12.0-18.0); BG VENT MODE NASAL CANNULA
[2018-09-02 07:04] LABS: BASOPHILS % 0.6 % (0.0-2.0); EOSINOPHILS % 2.2 % (0.0-5.0); HEMATOCRIT. 35.3 % (42.0-52.0); HEMOGLOBIN. 11.1 g/dL (14.0-18.0); LYMPHOCYTES % 8.3 % (20.0-50.0); MEAN CORPUSCULAR HEMOGLOBIN 25.8 pg (28.0-32.0); MEAN CORPUSCULAR VOLUME 82.2 fL (80.0-94.0); MEAN PLATELET VOLUME 9.7 fl (7.4-10.4); NEUTROPHILS % 79.9 % (40.0-76.0); PLATELET 334 x1000/uL (130-400); RED BLOOD CELL COUNT 4.29 mill/uL (4.7-6.1); RED CELL DISTRIBUTION WIDTH 17.8 % (11.6-14.6)
[2018-09-02] MEDS: PANTOPRAZOLE SODIUM 40 MG/VIAL IV SCH (09:03)
[2018-09-02] MEDS: FUROSEMIDE 40MG/4ML VIAL IVP SCH (09:03)
[2018-09-02] MEDS: ASPIRIN 325MG TABLET PO SCH (09:03)
[2018-09-02] MEDS: POTASSIUM CHLORIDE 20MEQ/PACKET PO SCH ×2 (09:03→17:31)
[2018-09-03] MEDS: METOCLOPRAMIDE HCL 10MG/2ML VIAL IV SCH ×4 (01:01→18:28)
[2018-09-03] MEDS: DILTIAZEM HCL 90MG TABLET PO SCH ×4 (01:56→18:29)
[2018-09-03] MEDS: IPRATROPIUM/ALBUTEROL 0.5-3(2.5)MG/3ML NEB HHN SCH ×4 (04:45→20:53)
[2018-09-03] MEDS: ENOXAPARIN 60MG/0.6ML SYR SUBCUT SCH ×2 (06:43→18:29)
[2018-09-03 07:46] LABS: CHLORIDE 110 mEq/L (98-107)
[2018-09-03 07:49] LABS: BASOPHILS % 0.7 % (0.0-2.0); EOSINOPHILS % 3.8 % (0.0-5.0); HEMATOCRIT. 35.9 % (42.0-52.0); HEMOGLOBIN. 11.3 g/dL (14.0-18.0); LYMPHOCYTES % 8.6 % (20.0-50.0); MEAN CORPUSCULAR HEMOGLOBIN 25.9 pg (28.0-32.0); MEAN CORPUSCULAR VOLUME 82.4 fL (80.0-94.0); MEAN PLATELET VOLUME 10.3 fl (7.4-10.4); MONOCYTES % 7.9 % (2.0-8.0); PLATELET 363 x1000/uL (130-400); RED BLOOD CELL COUNT 4.36 mill/uL (4.7-6.1); RED CELL DISTRIBUTION WIDTH 17.8 % (11.6-14.6)
[2018-09-03 08:00] VITALS: BP 158/99
[2018-09-03] MEDS: ASPIRIN 325MG TABLET PO SCH (08:18)
[2018-09-03] MEDS: FUROSEMIDE 40MG/4ML VIAL IVP SCH (08:18)
[2018-09-03] MEDS: BLOOD SUGAR DIAGNOSTIC STRIP TEST SCH ×4 (08:18→21:00)
[2018-09-03] MEDS: PANTOPRAZOLE SODIUM 40 MG/VIAL IV SCH (08:18)
[2018-09-03] MEDS: POTASSIUM CHLORIDE 20MEQ/PACKET PO SCH ×2 (08:18→18:28)
[2018-09-03] MEDS: INSULIN LISPRO 100 UNITS/ML SUBCUT SCH ×4 (08:19→21:00)
[2018-09-03 09:22] VITALS: BP 145/87
[2018-09-03 12:00] VITALS: BP 106/78
[2018-09-03 16:00] VITALS: BP 133/82
[2018-09-03 20:00] VITALS: BP 136/80
[2018-09-04] VITALS (8 sets, daily range): BP systolic 98–141; BP diastolic 49–83
[2018-09-04] MEDS: DOCUSATE SODIUM 100MG CAPSULE PO PRN (00:02)
[2018-09-04] MEDS: METOCLOPRAMIDE HCL 10MG/2ML VIAL IV SCH ×5 (00:02→23:59)
[2018-09-04] MEDS: DILTIAZEM HCL 90MG TABLET PO SCH ×5 (00:02→23:59)
[2018-09-04] MEDS: ONDANSETRON HCL 4MG/2ML INJ IV PRN (00:02)
[2018-09-04] MEDS: IPRATROPIUM/ALBUTEROL 0.5-3(2.5)MG/3ML NEB HHN SCH ×5 (01:51→21:15)
[2018-09-04] MEDS ORDERED: ACETAMINOPHEN 325MG TABLET PO PRN (04:45)
[2018-09-04] MEDS: ENOXAPARIN 60MG/0.6ML SYR SUBCUT SCH ×2 (05:55→17:27)
[2018-09-04] MEDS ORDERED: FUROSEMIDE 40MG/4ML VIAL IVP SCH (09:00)
[2018-09-04] MEDS ORDERED: ENOXAPARIN 40MG/0.4ML SYR SUBCUT SCH (09:00)
[2018-09-04] MEDS: POTASSIUM CHLORIDE 20MEQ/PACKET PO SCH ×2 (09:50→17:23)
[2018-09-04] MEDS: ASPIRIN 325MG TABLET PO SCH (09:50)
[2018-09-04] MEDS: PANTOPRAZOLE SODIUM 40 MG/VIAL IV SCH (09:50)
[2018-09-04] MEDS: BLOOD SUGAR DIAGNOSTIC STRIP TEST SCH ×3 (12:30→21:17)
[2018-09-04] MEDS: INSULIN LISPRO 100 UNITS/ML SUBCUT SCH ×3 (14:10→21:22)
[2018-09-05] VITALS (9 sets, daily range): BP systolic 118–141; BP diastolic 48–92
[2018-09-05] MEDS: METOCLOPRAMIDE HCL 10MG/2ML VIAL IV SCH ×3 (06:27→18:06)
[2018-09-05] MEDS: ENOXAPARIN 60MG/0.6ML SYR SUBCUT SCH ×2 (06:27→18:06)
[2018-09-05] MEDS: DILTIAZEM HCL 90MG TABLET PO SCH ×3 (06:27→18:07)
[2018-09-05] MEDS: BLOOD SUGAR DIAGNOSTIC STRIP TEST SCH ×3 (07:48→17:03)
[2018-09-05] MEDS: INSULIN LISPRO 100 UNITS/ML SUBCUT SCH ×3 (08:15→18:07)
[2018-09-05] MEDS: POTASSIUM CHLORIDE 20MEQ/PACKET PO SCH ×2 (09:17→17:00)
[2018-09-05] MEDS: ASPIRIN 325MG TABLET PO SCH (09:17)
[2018-09-05] MEDS: PANTOPRAZOLE SODIUM 40 MG/VIAL IV SCH (09:17)
[2018-09-05] MEDS: IPRATROPIUM/ALBUTEROL 0.5-3(2.5)MG/3ML NEB HHN SCH ×4 (10:38→20:01)
== END 2018-09-05 23:48 | DRG 870 ==
LOC: ER 09:13 → EDBEDREQ 10:24 → MICUSO 11:20 → ENRESERV 14:13 → SUPCPDRO 15:10 → 5EST 08-29 08:49
PROVIDERS: ADMIT Internal Medicine; ATTEND Internal Medicine
PROC: 5A1955Z Respiratory Ventilation, Greater than 96 Consecutive Hours (ICD-10-PCS; principal; 2018-08-23)
PROC: 5A12012 Performance of Cardiac Output, Single, Manual (ICD-10-PCS; 2018-08-23)
PROC: 05HY33Z Insertion of Infusion Device into Upper Vein, Percutaneous Approach (ICD-10-PCS; 2018-08-23)
PROC: B54MZZZ Ultrasonography of Right Upper Extremity Veins (ICD-10-PCS; 2018-08-23)
PROC: 0BH17EZ Insertion of Endotracheal Airway into Trachea, Via Natural or Artificial Opening (ICD-10-PCS; 2018-08-23)
DX: A41.9 Sepsis, unspecified organism (principal); J96.01 Acute respiratory failure with hypoxia; I46.2 Cardiac arrest due to underlying cardiac condition; I50.43 Acute on chronic combined systolic (congestive) and diastolic (congestive) heart failure; I49.01 Ventricular fibrillation; R65.21 Severe sepsis with septic shock; N39.0 Urinary tract infection, site not specified; I42.9 Cardiomyopathy, unspecified; E44.0 Moderate protein-calorie malnutrition; G93.1 Anoxic brain damage, not elsewhere classified; E87.2 Acidosis; G93.40 Encephalopathy, unspecified; E80.6 Other disorders of bilirubin metabolism; I11.0 Hypertensive heart disease with heart failure; E11.649 Type 2 diabetes mellitus with hypoglycemia without coma; E87.6 Hypokalemia; E11.65 Type 2 diabetes mellitus with hyperglycemia; I48.0 Paroxysmal atrial fibrillation; I87.2 Venous insufficiency (chronic) (peripheral); Z78.1 Physical restraint status; Z79.4 Long term (current) use of insulin; Z86.73 Personal history of transient ischemic attack (TIA), and cerebral infarction without residual deficits; Z91.14 Patient's other noncompliance with medication regimen; Z68.29 Body mass index [BMI] 29.0-29.9, adult
CPT/HCPCS: 36415; 36556; 36569; 36600; 71045; 71250; 76937; 78580; 80048; 80061; 80202; 80305; 82150; 82330; 82375; 82533; 82550; 82553; 82805; 82962; 83036; 83605; 83735; 83880; 84100; 84145; 84443; 84478; 84484; 85379; 87070; 92610; 93005; 93306; 93970; 94002; 94003; 94640; 94667; 96365; 96375; 97116; 97163; 97166; 97530; 97535; 99291; A6261; C1725; C9113; G0482; J0696; J1250; J1650; J1815; J1940; J1956; J2060; J2250; J2405; J2543; J2704; J2765; J3010; J3370; J3475; J3480; J3490; J7030; J7050; J7060; J7620; A4315

== ENCOUNTER 2018-11-08 10:23 | Inpatient (IN) | payer MEDICARE, MEDICAID ==
[~2018-11-08] VITALS: Ht 188 cm; Wt 94.3 kg
[2018-11-08 11:15] LABS: BASOPHILS % 0.8 % (0.0-2.0); EOSINOPHILS % 0.7 % (0.0-5.0); HEMATOCRIT. 47.7 % (42.0-52.0); HEMOGLOBIN. 15.3 g/dL (14.0-18.0); LYMPHOCYTES % 12.4 % (20.0-50.0); MEAN CORPUSCULAR HEMOGLOBIN 27.7 pg (28.0-32.0); MEAN CORPUSCULAR VOLUME 86.2 fL (80.0-94.0); MEAN PLATELET VOLUME 9.6 fl (7.4-10.4); MONOCYTES % 6.7 % (2.0-8.0); NEUTROPHILS % 79.4 % (40.0-76.0); PLATELET 219 x1000/uL (130-400); RED BLOOD CELL COUNT 5.53 mill/uL (4.7-6.1); RED CELL DISTRIBUTION WIDTH 25.4 % (11.6-14.6)
[2018-11-08 11:20] LABS: CHLORIDE 109 mEq/L (98-107)
[2018-11-08] MEDS ORDERED: ENALAPRIL 2.5MG/2ML VIAL 2ML IV ONE (12:00)
[2018-11-08] MEDS ORDERED: FUROSEMIDE 40MG/4ML VIAL IVP ONE (12:00)
[2018-11-08 12:09] LABS: PLATELET ESTIMATE NORMAL
[2018-11-08] MEDS ORDERED: ACETAMINOPHEN 325MG TABLET PO PRN (12:30)
[2018-11-08] MEDS ORDERED: ONDANSETRON HCL 4MG/2ML INJ IV PRN (12:30)
[2018-11-08] MEDS ORDERED: CLONIDINE 0.1MG TABLET PO PRN (12:30)
[2018-11-08] MEDS ORDERED: IPRATROPIUM/ALBUTEROL 0.5-3(2.5)MG/3ML NEB INH PRN (12:30)
[2018-11-08] MEDS ORDERED: TRAMADOL 50MG TABLET PO PRN (12:30)
[2018-11-08] MEDS ORDERED: GUAIFENESIN 200MG/10ML SUGAR FREE UDC PO PRN (12:30)
[2018-11-08] MEDS ORDERED: MORPHINE SULFATE 4 MG/ML CPJ (NOT FOR IM USE) IV PRN (12:30)
[2018-11-08] MEDS ORDERED: NA PHOS,M-B/NA PHOS,DI-BA ENEMA 118ML PR PRN (12:30)
[2018-11-08] MEDS ORDERED: ZOLPIDEM TARTRATE 5MG TABLET PO PRN (12:30)
[2018-11-08] MEDS ORDERED: MAGNESIUM/ALUMINUM HYDROXIDE/SIMETHICONE 30ML UDC PO PRN (12:30)
[2018-11-08] MEDS ORDERED: NITROGLYCERIN 0.4MG TABLET SL SL PRN ×2 (12:30)
[2018-11-08] MEDS ORDERED: DEXTROSE 50% WATER 50ML SYRINGE IV PRN (12:30)
[2018-11-08] MEDS ORDERED: DOCUSATE SODIUM 100MG CAPSULE PO PRN (12:30)
[2018-11-08] MEDS ORDERED: DILTIAZEM HCL 60MG TABLET PO SCH ×2 (13:00→19:45)
[2018-11-08 15:22] LABS: CREATINE KINASE MB FRACTION 4.5 ng/mL (0.5-3.6)
[2018-11-08 16:44] LABS: INR 1.2; PROTHROMBIN TIME 12.1 sec (9.6-11.0)
[2018-11-08] MEDS ORDERED: CARVEDILOL 6.25 MG TABLET PO NR (19:45)
[2018-11-08] MEDS ORDERED: SPIRONOLACTONE 25MG TABLET PO SCH (21:00)
[2018-11-08] MEDS ORDERED: ATORVASTATIN CALCIUM 10MG TABLET PO SCH ×2 (21:00)
[2018-11-08] MEDS ORDERED: FUROSEMIDE 40MG/4ML VIAL IVP SCH ×2 (21:00→22:00)
[2018-11-08] MEDS: BLOOD SUGAR DIAGNOSTIC STRIP TEST SCH (21:49)
[2018-11-08] MEDS: INSULIN LISPRO 100 UNITS/ML SUBCUT SCH (21:59)
[2018-11-08 22:00] VITALS: BP 136/105
[2018-11-08] MEDS: FAMOTIDINE 20MG TABLET PO SCH (22:00)
[2018-11-08] MEDS: ATORVASTATIN CALCIUM 40MG TABLET PO SCH (22:00)
[2018-11-08] MEDS ORDERED: ENOXAPARIN 100MG/ML SYR SUBCUT SCH (22:00)
[2018-11-08] MEDS: DILTIAZEM HCL 30MG TABLET PO SCH (23:02)
[2018-11-08 23:54] VITALS: BP 136/100
[2018-11-09] VITALS (13 sets, daily range): BP systolic 94–132; BP diastolic 55–78
[2018-11-09] MEDS: DILTIAZEM HCL 30MG TABLET PO SCH ×4 (06:04→23:07)
[2018-11-09 07:04] LABS: BASOPHILS % 0.8 % (0.0-2.0); EOSINOPHILS % 0.6 % (0.0-5.0); HEMATOCRIT. 44.9 % (42.0-52.0); HEMOGLOBIN. 14.5 g/dL (14.0-18.0); LYMPHOCYTES % 8.5 % (20.0-50.0); MEAN CORPUSCULAR HEMOGLOBIN 27.8 pg (28.0-32.0); MEAN CORPUSCULAR VOLUME 86.2 fL (80.0-94.0); MEAN PLATELET VOLUME 9.8 fl (7.4-10.4); NEUTROPHILS % 82.1 % (40.0-76.0); PLATELET 206 x1000/uL (130-400); RED CELL DISTRIBUTION WIDTH 25.6 % (11.6-14.6)
[2018-11-09 07:43] LABS: CHLORIDE 111 mEq/L (98-107)
[2018-11-09] MEDS: INSULIN LISPRO 100 UNITS/ML SUBCUT SCH ×4 (08:00→20:37)
[2018-11-09] MEDS: BLOOD SUGAR DIAGNOSTIC STRIP TEST SCH ×4 (08:25→20:38)
[2018-11-09] MEDS: ASPIRIN 81MG EC TABLET PO SCH (08:46)
[2018-11-09] MEDS: CARVEDILOL 6.25 MG TABLET PO SCH ×2 (08:46→20:41)
[2018-11-09] MEDS: FAMOTIDINE 20MG TABLET PO SCH ×2 (08:47→20:45)
[2018-11-09] MEDS ORDERED: SPIRONOLACTONE 25MG TABLET PO SCH (09:00)
[2018-11-09] MEDS ORDERED: ASPIRIN 325MG EC TABLET PO SCH (09:00)
[2018-11-09] MEDS: ENOXAPARIN 80MG/0.8ML SYR SUBCUT SCH ×2 (13:24→20:45)
[2018-11-09] MEDS: FUROSEMIDE 40MG/4ML VIAL IVP SCH (16:44)
[2018-11-10] VITALS (12 sets, daily range): BP systolic 102–131; BP diastolic 36–89
[2018-11-10] MEDS: DILTIAZEM HCL 30MG TABLET PO SCH ×3 (05:16→17:48)
[2018-11-10 07:04] LABS: BASOPHILS % 0.4 % (0.0-2.0); EOSINOPHILS % 0.4 % (0.0-5.0); HEMATOCRIT. 42.6 % (42.0-52.0); HEMOGLOBIN. 13.7 g/dL (14.0-18.0); MEAN CORPUSCULAR HEMOGLOBIN 28.8 pg (28.0-32.0); MEAN CORPUSCULAR VOLUME 89.6 fL (80.0-94.0); MEAN PLATELET VOLUME 9.8 fl (7.4-10.4); MONOCYTES % 11.6 % (2.0-8.0); NEUTROPHILS % 74.6 % (40.0-76.0); PLATELET 208 x1000/uL (130-400); RED BLOOD CELL COUNT 4.75 mill/uL (4.7-6.1); RED CELL DISTRIBUTION WIDTH 25.1 % (11.6-14.6)
[2018-11-10] MEDS: BLOOD SUGAR DIAGNOSTIC STRIP TEST SCH ×4 (07:30→20:57)
[2018-11-10] MEDS: INSULIN LISPRO 100 UNITS/ML SUBCUT SCH ×4 (08:00→21:00)
[2018-11-10] MEDS: ASPIRIN 81MG EC TABLET PO SCH (08:51)
[2018-11-10] MEDS: CARVEDILOL 6.25 MG TABLET PO SCH ×2 (08:52→21:00)
[2018-11-10] MEDS: ENOXAPARIN 80MG/0.8ML SYR SUBCUT SCH ×2 (08:52→20:57)
[2018-11-10] MEDS: FUROSEMIDE 40MG/4ML VIAL IVP SCH (08:52)
[2018-11-10] MEDS: FAMOTIDINE 20MG TABLET PO SCH ×2 (08:54→20:57)
[2018-11-10] MEDS ORDERED: MAGNESIUM 1 G PREMIX 100 ML IV NR (16:00)
[2018-11-10] MEDS: ATORVASTATIN CALCIUM 40MG TABLET PO SCH (20:57)
[2018-11-11] VITALS (12 sets, daily range): BP systolic 86–131; BP diastolic 42–82
[2018-11-11] MEDS: DILTIAZEM HCL 30MG TABLET PO SCH ×3 (05:41→11:06)
[2018-11-11 06:10] LABS: BASOPHILS % 0.5 % (0.0-2.0); EOSINOPHILS % 0.7 % (0.0-5.0); HEMOGLOBIN. 13.1 g/dL (14.0-18.0); LYMPHOCYTES % 12.2 % (20.0-50.0); MEAN CORPUSCULAR HEMOGLOBIN 27.6 pg (28.0-32.0); MEAN CORPUSCULAR VOLUME 86.5 fL (80.0-94.0); MEAN PLATELET VOLUME 9.9 fl (7.4-10.4); MONOCYTES % 12.2 % (2.0-8.0); NEUTROPHILS % 74.4 % (40.0-76.0); PLATELET 194 x1000/uL (130-400); RED BLOOD CELL COUNT 4.74 mill/uL (4.7-6.1); RED CELL DISTRIBUTION WIDTH 25.5 % (11.6-14.6)
[2018-11-11 06:25] LABS: CHLORIDE 111 mEq/L (98-107)
[2018-11-11] MEDS: INSULIN LISPRO 100 UNITS/ML SUBCUT SCH ×4 (08:00→21:46)
[2018-11-11] MEDS: FUROSEMIDE 40MG/4ML VIAL IVP SCH (08:13)
[2018-11-11] MEDS: FAMOTIDINE 20MG TABLET PO SCH ×2 (08:13→21:31)
[2018-11-11] MEDS: BLOOD SUGAR DIAGNOSTIC STRIP TEST SCH ×4 (08:13→21:32)
[2018-11-11] MEDS: ASPIRIN 81MG EC TABLET PO SCH (08:14)
[2018-11-11] MEDS: ENOXAPARIN 80MG/0.8ML SYR SUBCUT SCH ×2 (08:14→21:32)
[2018-11-11] MEDS: CARVEDILOL 6.25 MG TABLET PO SCH ×3 (09:00→21:00)
[2018-11-11] MEDS ORDERED: POTASSIUM CHLORIDE 20MEQ TABLET SR PO NR (11:30)
[2018-11-11] MEDS ORDERED: MAGNESIUM 1 G PREMIX 100 ML IV SCH (13:00)
[2018-11-11] MEDS: POTASSIUM CHLORIDE 20MEQ TABLET SR PO SCH (17:52)
[2018-11-11] MEDS: ATORVASTATIN CALCIUM 40MG TABLET PO SCH (21:30)
[2018-11-12] VITALS (14 sets, daily range): BP systolic 101–130; BP diastolic 48–87
[2018-11-12 05:31] LABS: BARBITURATE SCREEN Negative ug/mL (Cutoff:0.1); BENZODIAZEPINE SCREEN Negative ng/mL (Cutoff:20); OPIATES SCREEN Negative ng/mL (Cutoff:5); PHENCYCLIDINE SCREEN Negative ng/mL (Cutoff:8)
[2018-11-12 06:15] LABS: BASOPHILS % 0.8 % (0.0-2.0); EOSINOPHILS % 0.7 % (0.0-5.0); HEMATOCRIT. 41.7 % (42.0-52.0); HEMOGLOBIN. 13.5 g/dL (14.0-18.0); LYMPHOCYTES % 12.5 % (20.0-50.0); MEAN CORPUSCULAR HEMOGLOBIN 27.3 pg (28.0-32.0); MEAN CORPUSCULAR VOLUME 84.2 fL (80.0-94.0); MEAN PLATELET VOLUME 9.8 fl (7.4-10.4); MONOCYTES % 10.4 % (2.0-8.0); NEUTROPHILS % 75.6 % (40.0-76.0); PLATELET 214 x1000/uL (130-400); RED BLOOD CELL COUNT 4.96 mill/uL (4.7-6.1); RED CELL DISTRIBUTION WIDTH 24.4 % (11.6-14.6)
[2018-11-12 07:40] LABS: CHLORIDE 110 mEq/L (98-107)
[2018-11-12] MEDS: INSULIN LISPRO 100 UNITS/ML SUBCUT SCH ×4 (08:00→20:47)
[2018-11-12] MEDS: BLOOD SUGAR DIAGNOSTIC STRIP TEST SCH ×4 (08:03→20:47)
[2018-11-12] MEDS: ASPIRIN 81MG EC TABLET PO SCH (08:04)
[2018-11-12] MEDS: POTASSIUM CHLORIDE 20MEQ TABLET SR PO SCH (08:05)
[2018-11-12] MEDS: FAMOTIDINE 20MG TABLET PO SCH ×2 (08:05→20:46)
[2018-11-12] MEDS: CARVEDILOL 6.25 MG TABLET PO SCH ×2 (08:05→20:47)
[2018-11-12] MEDS: ENOXAPARIN 80MG/0.8ML SYR SUBCUT SCH (08:10)
[2018-11-12] MEDS ORDERED: FUROSEMIDE 40MG TABLET PO SCH (09:00)
[2018-11-12] MEDS ORDERED: RIVAROXABAN 15 MG TABLET PO SCH (18:00)
[2018-11-12] MEDS: ATORVASTATIN CALCIUM 40MG TABLET PO SCH (20:46)
== END 2018-11-12 23:20 | DRG 280 ==
LOC: ER 10:23 → EDBEDREQ 12:55 → 5EST 13:39 → EDBEDREQSVC 13:40 → EDBEDREQ 13:40 → EDBEDREQTM 13:40 → ENRESERV 20:28 → UNDODISIN 11-12 23:20
PROVIDERS: ADMIT Internal Medicine; ATTEND Internal Medicine
DX: I21.4 Non-ST elevation (NSTEMI) myocardial infarction (principal); I50.43 Acute on chronic combined systolic (congestive) and diastolic (congestive) heart failure; E43 Unspecified severe protein-calorie malnutrition; I49.01 Ventricular fibrillation; I42.9 Cardiomyopathy, unspecified; I47.2 Ventricular tachycardia; L97.919 Non-pressure chronic ulcer of unspecified part of right lower leg with unspecified severity; L97.929 Non-pressure chronic ulcer of unspecified part of left lower leg with unspecified severity; E11.65 Type 2 diabetes mellitus with hyperglycemia; I11.0 Hypertensive heart disease with heart failure; E78.5 Hyperlipidemia, unspecified; I25.10 Atherosclerotic heart disease of native coronary artery without angina pectoris; E11.42 Type 2 diabetes mellitus with diabetic polyneuropathy; I48.0 Paroxysmal atrial fibrillation; I49.3 Ventricular premature depolarization; I51.3 Intracardiac thrombosis, not elsewhere classified; Z87.891 Personal history of nicotine dependence; Z91.19 Patient's noncompliance with other medical treatment and regimen; Z95.5 Presence of coronary angioplasty implant and graft; Z68.26 Body mass index [BMI] 26.0-26.9, adult
CPT/HCPCS: 36415; 71045; 80048; 80061; 80307; 80320; 82550; 82553; 82962; 83036; 83735; 83880; 84484; 93005; 93306; 93970; 96374; 96375; 99285; J1650; J1815; J1940; J3475; J3490; J7050; G0480

== ENCOUNTER 2019-02-03 12:20 | Emergency (ER) | payer MEDICARE, MEDICAID ==
[~2019-02-03] VITALS: Ht 175.3 cm; Wt 72.0 kg
[2019-02-03 14:45] VITALS: BP 134/84
== END 2019-02-03 15:09 | disposition home or self-care (01) ==
LOC: ER 12:39
DX: R22.0 Localized swelling, mass and lump, head (principal); K08.89 Other specified disorders of teeth and supporting structures; E11.9 Type 2 diabetes mellitus without complications; I25.2 Old myocardial infarction; Z95.0 Presence of cardiac pacemaker; Z86.73 Personal history of transient ischemic attack (TIA), and cerebral infarction without residual deficits
CPT/HCPCS: 99283

== ENCOUNTER 2019-02-24 17:56 | Inpatient (IN) | payer MEDICARE, MEDICAID ==
[~2019-02-24] VITALS: Ht 172.7 cm; Wt 74.8 kg
[2019-02-25] MEDS ORDERED: FUROSEMIDE 40MG/4ML VIAL IVP ONE
[2019-02-25 00:42] LABS: BASOPHILS % 0.9 % (0.0-2.0); EOSINOPHILS % 1.9 % (0.0-5.0); HEMATOCRIT. 44.7 % (42.0-52.0); HEMOGLOBIN. 14.4 g/dL (14.0-18.0); LYMPHOCYTES % 15.7 % (20.0-50.0); MEAN CORPUSCULAR HEMOGLOBIN 30.7 pg (28.0-32.0); MEAN PLATELET VOLUME 8.2 fl (7.4-10.4); MONOCYTES % 11.4 % (2.0-8.0); NEUTROPHILS % 70.1 % (40.0-76.0); PLATELET 285 x1000/uL (130-400); RED CELL DISTRIBUTION WIDTH 20.7 % (11.6-14.6)
[2019-02-25 00:49] LABS: CHLORIDE 111 mEq/L (98-107)
[2019-02-25 03:32] VITALS: BP 143/87
[2019-02-25] MEDS ORDERED: POTA10TA20 PO (05:10)
[2019-02-25] MEDS ORDERED: LISI-186 PO (05:10)
[2019-02-25] MEDS ORDERED: MULT1TAB67 PO (05:10)
[2019-02-25] MEDS ORDERED: FERR325T6 PO (05:10)
[2019-02-25] MEDS ORDERED: RIVA20TA PO (05:10)
[2019-02-25] MEDS ORDERED: ZINC220T PO (05:10)
[2019-02-25] MEDS ORDERED: ATOR40TA70 PO (05:10)
[2019-02-25] MEDS ORDERED: THIA250T3 PO ×2 (05:10→05:13)
[2019-02-25] MEDS ORDERED: SENN-170 PO (05:10)
[2019-02-25] MEDS ORDERED: FURO40TA5 PO (05:10)
[2019-02-25] MEDS ORDERED: DOCU100T PO (05:10)
[2019-02-25] MEDS ORDERED: INSU100V37 SQ (05:10)
[2019-02-25] MEDS ORDERED: MORPHINE SULFATE 4 MG/ML CPJ (NOT FOR IM USE) IV PRN (07:00)
[2019-02-25] MEDS ORDERED: DOCUSATE SODIUM 100MG CAPSULE PO PRN (07:00)
[2019-02-25] MEDS ORDERED: MAGNESIUM/ALUMINUM HYDROXIDE/SIMETHICONE 30ML UDC PO PRN (07:00)
[2019-02-25] MEDS ORDERED: ONDANSETRON HCL 4MG/2ML INJ IV PRN (07:00)
[2019-02-25] MEDS ORDERED: TRAMADOL 50MG TABLET PO PRN (07:00)
[2019-02-25] MEDS ORDERED: ZOLPIDEM TARTRATE 5MG TABLET PO PRN (07:00)
[2019-02-25] MEDS ORDERED: GUAIFENESIN 200MG/10ML SUGAR FREE UDC PO PRN (07:00)
[2019-02-25] MEDS ORDERED: CLONIDINE 0.1MG TABLET PO PRN (07:00)
[2019-02-25] MEDS ORDERED: NITROGLYCERIN 0.4MG TABLET SL SL PRN (07:00)
[2019-02-25] MEDS ORDERED: IPRATROPIUM/ALBUTEROL 0.5-3(2.5)MG/3ML NEB INH PRN (07:00)
[2019-02-25] MEDS ORDERED: ACETAMINOPHEN 325MG TABLET PO PRN (07:00)
[2019-02-25] MEDS ORDERED: LORAZEPAM 0.5MG TABLET PO PRN (07:00)
[2019-02-25] MEDS ORDERED: DEXTROSE 50% WATER 50ML SYRINGE IV PRN (07:00)
[2019-02-25] MEDS ORDERED: MORPHINE SULFATE 2 MG/ML CPJ (NOT FOR IM USE) IV PRN (07:16)
[2019-02-25] MEDS: BLOOD SUGAR DIAGNOSTIC STRIP TEST SCH ×4 (07:20→20:57)
[2019-02-25] MEDS: INSULIN LISPRO 100 UNITS/ML SUBCUT SCH ×4 (07:50→20:57)
[2019-02-25 08:00] VITALS: BP 140/87
[2019-02-25] MEDS: FAMOTIDINE 20MG TABLET PO SCH ×2 (10:56→20:56)
[2019-02-25] MEDS: ASPIRIN 325MG EC TABLET PO SCH (10:56)
[2019-02-25] MEDS: FUROSEMIDE 100MG/10ML VIAL IVP SCH (10:56)
[2019-02-25] MEDS: CARVEDILOL 3.125 MG TABLET PO SCH ×2 (10:58→20:57)
[2019-02-25 12:00] VITALS: BP 134/84
[2019-02-25] MEDS: NYSTATIN POWDER 15GM TOP SCH ×2 (14:11→18:08)
[2019-02-25 16:00] VITALS: BP 120/74
[2019-02-25] MEDS ORDERED: POTA20TA82 MT (16:13)
[2019-02-25] MEDS: RIVAROXABAN 20 MG TABLET PO SCH (18:06)
[2019-02-25] MEDS: SPIRONOLACTONE 25MG TABLET PO SCH (18:08)
[2019-02-25 18:31] LABS: CREATINE KINASE MB FRACTION 1.4 ng/mL (0.5-3.6)
[2019-02-25 20:00] VITALS: BP 122/76
[2019-02-25] MEDS: ATORVASTATIN CALCIUM 40MG TABLET PO SCH (20:56)
[2019-02-26] VITALS: BP 127/84
[2019-02-26 01:56] LABS: CREATINE KINASE MB FRACTION 1.7 ng/mL (0.5-3.6)
[2019-02-26 04:00] VITALS: BP_SYST 126; BP_SYST 134; BP_DIAS 83
[2019-02-26] MEDS: SPIRONOLACTONE 25MG TABLET PO SCH ×2 (05:31→17:25)
[2019-02-26] MEDS: BLOOD SUGAR DIAGNOSTIC STRIP TEST SCH ×4 (06:43→21:25)
[2019-02-26] MEDS: FUROSEMIDE 100MG/10ML VIAL IVP SCH ×2 (06:47→18:34)
[2019-02-26] MEDS: INSULIN LISPRO 100 UNITS/ML SUBCUT SCH ×4 (07:50→21:23)
[2019-02-26 08:00] VITALS: BP 141/81
[2019-02-26] MEDS: FAMOTIDINE 20MG TABLET PO SCH ×2 (09:10→21:20)
[2019-02-26] MEDS: NYSTATIN POWDER 15GM TOP SCH ×3 (09:11→17:25)
[2019-02-26] MEDS: CARVEDILOL 3.125 MG TABLET PO SCH (09:11)
[2019-02-26] MEDS: ASPIRIN 325MG EC TABLET PO SCH (09:11)
[2019-02-26] MEDS: LOSARTAN POTASSIUM 50 MG TABLET PO SCH (10:55)
[2019-02-26 12:00] VITALS: BP 130/84
[2019-02-26 16:00] VITALS: BP 121/71
[2019-02-26] MEDS: RIVAROXABAN 20 MG TABLET PO SCH (17:25)
[2019-02-26 20:00] VITALS: BP 122/76
[2019-02-26] MEDS: ATORVASTATIN CALCIUM 40MG TABLET PO SCH (21:20)
[2019-02-26] MEDS: CARVEDILOL 6.25 MG TABLET PO SCH (21:22)
[2019-02-27] VITALS: BP 129/84
[2019-02-27 04:00] VITALS: BP 126/83
[2019-02-27] MEDS: SPIRONOLACTONE 25MG TABLET PO SCH ×2 (05:42→17:29)
[2019-02-27] MEDS: FUROSEMIDE 100MG/10ML VIAL IVP SCH ×2 (06:06→18:24)
[2019-02-27] MEDS: BLOOD SUGAR DIAGNOSTIC STRIP TEST SCH ×4 (06:06→21:18)
[2019-02-27] MEDS: INSULIN LISPRO 100 UNITS/ML SUBCUT SCH ×4 (07:43→21:00)
[2019-02-27 08:00] VITALS: BP 131/93
[2019-02-27] MEDS: CARVEDILOL 6.25 MG TABLET PO SCH ×2 (09:44→21:18)
[2019-02-27] MEDS: LOSARTAN POTASSIUM 50 MG TABLET PO SCH (09:44)
[2019-02-27] MEDS: FAMOTIDINE 20MG TABLET PO SCH ×2 (09:44→21:18)
[2019-02-27] MEDS: ASPIRIN 81MG EC TABLET PO SCH (09:44)
[2019-02-27] MEDS: NYSTATIN POWDER 15GM TOP SCH ×3 (09:45→17:35)
[2019-02-27 12:00] VITALS: BP 128/79
[2019-02-27 16:00] VITALS: BP 125/74
[2019-02-27] MEDS: RIVAROXABAN 20 MG TABLET PO SCH (17:36)
[2019-02-27 20:00] VITALS: BP 140/92
[2019-02-27] MEDS: ATORVASTATIN CALCIUM 40MG TABLET PO SCH (21:18)
[2019-02-28] VITALS: BP 143/76
[2019-02-28 04:00] VITALS: BP 141/87
[2019-02-28] MEDS: BLOOD SUGAR DIAGNOSTIC STRIP TEST SCH ×4 (06:16→21:27)
[2019-02-28] MEDS: FUROSEMIDE 100MG/10ML VIAL IVP SCH ×2 (06:16→18:36)
[2019-02-28] MEDS: SPIRONOLACTONE 25MG TABLET PO SCH ×2 (06:20→18:33)
[2019-02-28] MEDS: INSULIN LISPRO 100 UNITS/ML SUBCUT SCH ×4 (07:46→21:00)
[2019-02-28] MEDS: LOSARTAN POTASSIUM 50 MG TABLET PO SCH (09:05)
[2019-02-28] MEDS: FAMOTIDINE 20MG TABLET PO SCH ×2 (09:05→21:27)
[2019-02-28] MEDS: CARVEDILOL 6.25 MG TABLET PO SCH ×2 (09:06→21:27)
[2019-02-28] MEDS: ASPIRIN 81MG EC TABLET PO SCH (09:06)
[2019-02-28] MEDS: NYSTATIN POWDER 15GM TOP SCH ×3 (09:30→18:34)
[2019-02-28 11:11] VITALS: BP 148/90
[2019-02-28 16:17] VITALS: BP 124/85
[2019-02-28] MEDS: RIVAROXABAN 20 MG TABLET PO SCH (18:34)
[2019-02-28 20:00] VITALS: BP 120/82
[2019-02-28] MEDS: ATORVASTATIN CALCIUM 40MG TABLET PO SCH (21:27)
[2019-02-28 22:59] LABS: *BARBITURATES SCREEN URINE NEGATIVE (NEGATIVE)
[2019-02-28 23:00] LABS: *AMPHETAMINES SCREEN URINE NEGATIVE (NEGATIVE); *BENZODIAZEPINES SCREEN URINE NEGATIVE (NEGATIVE); *COCAINE SCREEN URINE NEGATIVE (NEGATIVE); CANNABINOID URINE SCREEN NEGATIVE (NEGATIVE); METHADONE URINE SCREEN NEGATIVE (NEGATIVE); OPIATES URINE SCREEN NEGATIVE (NEGATIVE); PHENCYCLIDINE URINE SCREEN NEGATIVE (NEGATIVE)
[2019-03-01] VITALS: BP 128/83
[2019-03-01 04:00] VITALS: BP 119/83
[2019-03-01 06:47] LABS: BASOPHILS % 1.2 % (0.0-2.0); EOSINOPHILS % 2.4 % (0.0-5.0); HEMATOCRIT. 41.7 % (42.0-52.0); HEMOGLOBIN. 13.9 g/dL (14.0-18.0); LYMPHOCYTES % 19.2 % (20.0-50.0); MEAN CORPUSCULAR HEMOGLOBIN 32.6 pg (28.0-32.0); MEAN CORPUSCULAR VOLUME 98.4 fL (80.0-94.0); MEAN PLATELET VOLUME 9.1 fl (7.4-10.4); MONOCYTES % 11.5 % (2.0-8.0); NEUTROPHILS % 65.7 % (40.0-76.0); PLATELET 267 x1000/uL (130-400); RED BLOOD CELL COUNT 4.24 mill/uL (4.7-6.1); RED CELL DISTRIBUTION WIDTH 20.3 % (11.6-14.6)
[2019-03-01] MEDS: SPIRONOLACTONE 25MG TABLET PO SCH ×2 (06:50→18:17)
[2019-03-01] MEDS: FUROSEMIDE 100MG/10ML VIAL IVP SCH ×2 (06:51→18:17)
[2019-03-01] MEDS: BLOOD SUGAR DIAGNOSTIC STRIP TEST SCH ×3 (06:51→18:07)
[2019-03-01] MEDS: INSULIN LISPRO 100 UNITS/ML SUBCUT SCH ×3 (07:50→17:50)
[2019-03-01 08:00] VITALS: BP 129/86
[2019-03-01] MEDS: FAMOTIDINE 20MG TABLET PO SCH (09:17)
[2019-03-01] MEDS: LOSARTAN POTASSIUM 50 MG TABLET PO SCH (09:17)
[2019-03-01] MEDS: ASPIRIN 81MG EC TABLET PO SCH (09:17)
[2019-03-01] MEDS: CARVEDILOL 6.25 MG TABLET PO SCH (09:17)
[2019-03-01] MEDS: NYSTATIN POWDER 15GM TOP SCH ×3 (09:18→18:07)
[2019-03-01 10:41] LABS: CHLORIDE 107 mEq/L (98-107)
[2019-03-01] MEDS ORDERED: POTASSIUM CHLORIDE 20MEQ/PACKET PO NR (11:00)
[2019-03-01 12:00] VITALS: BP 134/87
[2019-03-01 15:13] VITALS: BP 134/87
[2019-03-01 16:00] VITALS: BP 140/84
[2019-03-01] MEDS: RIVAROXABAN 20 MG TABLET PO SCH (18:04)
== END 2019-03-01 18:46 | disposition home health service (06) | DRG 264 ==
LOC: ER 17:56 → EDBEDREQ 02-25 00:48 → EDBEDREQTM 02-25 00:48 → ENRESERV 02-25 01:09 → 6WST 02-25 02:54
PROVIDERS: ADMIT Internal Medicine; ATTEND Internal Medicine
PROC: 0JBP0ZZ Excision of Left Lower Leg Subcutaneous Tissue and Fascia, Open Approach (ICD-10-PCS; principal; 2019-02-25)
DX: I11.0 Hypertensive heart disease with heart failure (principal); E43 Unspecified severe protein-calorie malnutrition; L97.929 Non-pressure chronic ulcer of unspecified part of left lower leg with unspecified severity; I47.2 Ventricular tachycardia; E11.51 Type 2 diabetes mellitus with diabetic peripheral angiopathy without gangrene; I50.43 Acute on chronic combined systolic (congestive) and diastolic (congestive) heart failure; I42.9 Cardiomyopathy, unspecified; E11.42 Type 2 diabetes mellitus with diabetic polyneuropathy; E11.65 Type 2 diabetes mellitus with hyperglycemia; I48.0 Paroxysmal atrial fibrillation; D63.8 Anemia in other chronic diseases classified elsewhere; E78.00 Pure hypercholesterolemia, unspecified; I25.10 Atherosclerotic heart disease of native coronary artery without angina pectoris; L30.4 Erythema intertrigo; N48.89 Other specified disorders of penis; E11.621 Type 2 diabetes mellitus with foot ulcer; I87.2 Venous insufficiency (chronic) (peripheral); E78.5 Hyperlipidemia, unspecified; I25.2 Old myocardial infarction; Z79.01 Long term (current) use of anticoagulants; Z79.4 Long term (current) use of insulin; Z79.899 Other long term (current) drug therapy; Z86.73 Personal history of transient ischemic attack (TIA), and cerebral infarction without residual deficits; Z86.74 Personal history of sudden cardiac arrest; Z87.891 Personal history of nicotine dependence; Z95.5 Presence of coronary angioplasty implant and graft; Z95.810 Presence of automatic (implantable) cardiac defibrillator; Z68.25 Body mass index [BMI] 25.0-25.9, adult
CPT/HCPCS: 36415; 71045; 80061; 80305; 82550; 82553; 82962; 83036; 83735; 83880; 84134; 84484; 87070; 87077; 87186; 93005; 93306; 93923; 96374; 97166; 97530; 99285; J1815; J1940; J2270